=== PATIENT | male | born 1960 | race Caucasian/White ===

== ENCOUNTER 2017-12-18 13:56 | Emergency (ER) | payer OTHER ==
[~2017-12-18] VITALS: Ht 175.3 cm; Wt 143.8 kg
[2017-12-18 14:05] VITALS: BP 194/88
--- NOTE | 2017-12-18 14:30 | PHYS DOC ---
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 Patient states that it happened so fast really sure what happened. Patient has pain in the right pointer finger and swelling to the right pointer finger and states that the pain within the whole index metacarpal. Patient can slightly bend the finger but is very painful. Review of Systems Review of Systems Constitutional: Denies fever or chills [] Eyes: Denies change in visual acuity, redness, or eye pain [] HENT: Denies nasal congestion or sore throat [] Respiratory: Denies cough or shortness of breath [] Cardiovascular: No additional information not addressed in HPI [] GI: Denies abdominal pain, nausea, vomiting, bloody stools or diarrhea [] : Denies dysuria or hematuria [] Musculoskeletal: Right index finger pain and swelling. Denies back pain or joint pain [] Integument: Denies rash or skin lesions [] Neurologic: Denies headache, focal weakness or sensory changes [] Endocrine: Denies polyuria or polydipsia [] All other systems were reviewed and found to be within normal limits, except as documented in this note. Allergies Allergies Allergies Coded Allergies Type Severity Reaction Last Updated Verified meperidine Allergy Intermediate vomiting 12/18/17 Yes Physical Exam Physical Exam Constitutional: Well developed, well nourished, no acute distress, non-toxic appearance. [] HENT: Normocephalic, atraumatic, bilateral external ears normal, oropharynx moist, no oral exudates, nose normal. [] Eyes: PERRLA, EOMI, conjunctiva normal, no discharge. [] Neck: Normal range of motion, no tenderness, supple, no stridor. [] Cardiovascular:Heart rate regular rhythm, no murmur [] Lungs & Thorax: Bilateral breath sounds clear to auscultation [] Abdomen: Bowel sounds normal, soft, no tenderness, no masses, no pulsatile masses. [] Skin: Warm, dry, no erythema, no rash. [] Back: No tenderness, no CVA tenderness. [] Extremities: Right index metatarsal tenderness, no cyanosis, no clubbing, ROM intact, Right index finger 2+ edema. [] Neurologic: Alert and oriented X 3, normal motor function, normal sensory function, no focal deficits noted. [] Psychologic: Affect normal, judgement normal, mood normal. [] Current Patient Data Vital Signs Vital Signs Date Time Temp Pulse Resp B/P (MAP) Pulse Ox O2 Delivery O2 Flow Rate FiO2 12/18/17 14:05 97.7 64 20 194/88 (123) 98 Room Air 97.7 EKG EKG [] Radiology/Procedures Radiology/Procedures Right hand Impressions: [facility] [address] [place] [address] IMAGING REPORT Signed PATIENT: MICHELET MAC ACCOUNT: [id number] : 1960 LOCATION: ER AGE: 57 SEX: M EXAM STATUS: PRE ER ORD. PHYSICIAN: EZRA MUHAMMAD APRN REASON: Unknown injury, pain across metacarpals PROCEDURE: HAND RIGHT 3V Right hand, 3 views, 12/18/2017: HISTORY: Pain and swelling, unknown injury There is a nondisplaced fracture of the proximal end of the proximal phalanx of the index finger. The fracture line involves the second MCP joint. This is probably a recent fracture, although that cannot be stated with certainty. No other fracture or dislocation is identified. There is moderate soft tissue swelling, particularly over the dorsum of the hand. IMPRESSION: Nondisplaced fracture of the proximal end of the proximal phalanx of the right index finger. 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 Patient states that it happened so fast really sure what happened. Patient has pain in the right pointer finger and swelling to the right pointer finger and states that the pain within the whole index metacarpal. Patient can slightly bend the finger but is very painful. There is some bruising noted but no deformity. Radial pulses strong and present. Cap refill is less than 3 seconds. Patient states he didn't take anything for medications. Given is pink warm and dry. Patient has a history of hypothyroidism, anemia, anxiety. He is allergic to Demerol. Alert and oriented. Patient rates his pain a 7 out of 10 and states that it does not radiate. Hand xray shows Nondisplaced fracture of the proximal end of the proximal phalanx of the right index finger. Patient to receive a Ulnar gutter splint. Patient tolerated well. Splint has a fingers width of space between the skin and the splint. Cap refill less than three seconds. Patient is told to watch for the skin that is casted to turn purple or white, or start throbbing, intense pain, or feels like the blood flow is being cut off because it's too tight. Patient is told he can unwrap it and rewrap the splint looser if needed. Patient states he does not want any pain medication and states she she's been taking Tylenol or ibuprofen is been taking care of his pain. Patient to follow- up with orthopedics within the next 5 days. [] Dragon Disclaimer Dragon Disclaimer This electronic medical record was generated, in whole or in part, using a voice recognition dictation system. Departure Departure Impression: Primary Impression: Proximal phalanx fracture of finger Disposition: 01 HOME, SELF-CARE Condition: STABLE Referrals: MISA DC MD Patient Instructions: Finger Fracture Additional Instructions: Follow-up with orthopedic within the next 5 days. Continue taking ibuprofen or Tylenol for pain as needed. Watch for any sudden numbness, tingling, swelling, intense pain or discoloration of the right hand finger. Into the ED if any of the symptoms occur. Problem Qualifiers Primary Impression: Proximal phalanx fracture of finger Encounter type: initial encounter Finger: index finger Fracture type: closed Fracture alignment: nondisplaced Laterality: right Qualified Codes: S62.640A - Nondisplaced fracture of proximal phalanx of right index finger, initial encounter for closed fracture EZRA MUHAMMAD APRN Dec 18, 2017 14:30
--- NOTE | 2017-12-18 14:46 | RAD ---
Right hand, 3 views, 12/18/2017: HISTORY: Pain and swelling, unknown injury There is a nondisplaced fracture of the proximal end of the proximal phalanx of the index finger. The fracture line involves the second MCP joint. This is probably a recent fracture, although that cannot be stated with certainty. No other fracture or dislocation is identified. There is moderate soft tissue swelling, particularly over the dorsum of the hand. IMPRESSION: Nondisplaced fracture of the proximal end of the proximal phalanx of the right index finger. Electronically signed by: Florin Durant MD (12/18/2017 2:43 PM) [facility]
== END 2017-12-18 15:30 | disposition home or self-care (01) ==
LOC: ER 13:56
DX: S62.640A Nondisplaced fracture of proximal phalanx of right index finger, initial encounter for closed fracture (principal); E03.9 Hypothyroidism, unspecified; Z88.8 Allergy status to other drugs, medicaments and biological substances; W22.8XXA Striking against or struck by other objects, initial encounter; Y93.89 Activity, other specified; Y92.89 Other specified places as the place of occurrence of the external cause; Y99.8 Other external cause status
CPT/HCPCS: 29125; 73130; 99284-25